=== PATIENT | male | born 1970 | race Hispanic/Latino ===

== ENCOUNTER 2022-06-18 08:06 | Observation (INO) | payer BC ==
[~2022-06-18] VITALS: Ht 180.3 cm; Wt 122.5 kg
[~2022-06-18 08:06] MED LIST: CELECOXIB 200 MG CAP ONE; CRESTOR10 MG PO; DEXAMETHASONE SOD PHOS 10 MG/1 ML VIAL ONE; FISH OIL 1,0001 EAC7 PO; GABAPENTIN 300 MG CAP ONE; MULTI-VITAMIN1 EACH PO; OLMESARTAN-HCT1 EACH PO; ROPIVACAINE 246.25 MG, EPINEPHRINE HCL 1:1000 1ML 0.5 MG, CLONIDINE HCL 0.08 MG, KETORO... INJ ONE
[2022-06-18] MEDS ORDERED: Vancomycin IV 1,000 MG ONE (08:57)
[2022-06-18] MEDS ORDERED: SODIUM CHLORIDE 0.9% 250ML 250 ML ONE (08:58)
[2022-06-18] MEDS ORDERED: TRANEXAMIC ACID 20 ML ONE (08:58)
[2022-06-18] MEDS ORDERED: LIDOCAINE HCL-PF 4% 40 MG/1 ML 5ML AMP ONE (09:09)
[2022-06-18] MEDS ORDERED: DEXMEDETOMIDINE HCL 2 ML ONE (09:10)
[2022-06-18] MEDS ORDERED: HYDROMORPHONE 2MG/ML 2 MG/ML ML ONE (09:11)
[2022-06-18] MEDS ORDERED: SODIUM CHLORIDE 0.9% 1000ML 1,000 ML IV SCH (11:00)
[2022-06-18] MEDS ORDERED: HYDROCODONE/APAP 5MG-325MG TAB PO PRN (11:00)
[2022-06-18] MEDS ORDERED: DIPHENHYDRAMINE HCL INJ 50 MG/ML VIAL IV PRN (11:00)
[2022-06-18] MEDS ORDERED: HYDROCODONE/APAP 7.5MG-325MG 1 EA TAB PO PRN (11:00)
[2022-06-18] MEDS ORDERED: DOCUSATE SODIUM 100 MG CAP PO PRN (11:00)
[2022-06-18] MEDS ORDERED: ONDANSETRON HCL INJ 2MG/ML 2ML 2 MG/ML VIAL IV PRN (11:00)
[2022-06-18] MEDS ORDERED: Morphine 4mg INJECTION 4 MG/ML INJ ONE (11:41)
[2022-06-18] MEDS ORDERED: HYDROCODON-ACE1 EA12 PO (12:25)
[2022-06-18 12:55] VITALS: BP 140/72
[2022-06-18 13:03] VITALS: BP 140/72
[2022-06-18] MEDS ORDERED: MIDAZOLAM HCL 2 MG/2 ML VIAL ONE (13:16)
[2022-06-18] MEDS ORDERED: ASPIRIN 325 MG TAB PO SCH (17:00)
[2022-06-18] MEDS ORDERED: CELECOXIB 200 MG CAP PO SCH (17:00)
[2022-06-18] MEDS ORDERED: DEXAMETHASONE SOD PHOS INJ 4 MG/ML SDV ONE (18:59)
[2022-06-18] MEDS ORDERED: ROCURONIUM BROMIDE 10 MG/ML 5ML VIAL IV ONE (18:59)
[2022-06-18] MEDS ORDERED: PROPOFOL IV EMULSION 10 MG/ML 20 ML VIAL ONE (18:59)
[2022-06-18] MEDS ORDERED: POVIDONE IODINE 0.05% 0.05 % ML PO ONE (18:59)
[2022-06-18] MEDS ORDERED: ONDANSETRON HCL INJ 2MG/ML 2ML 2 MG/ML VIAL ONE (18:59)
[2022-06-18] MEDS ORDERED: SEVOFLURANE INHAL SOLN 250 ML PEN BTL ONE (18:59)
[2022-06-18] MEDS ORDERED: KETOROLAC TROMETHAMINE 30 MG/ML VIAL ONE (18:59)
[2022-06-18] MEDS ORDERED: NEOSTIGMINE 1 MG/ML 10ML VIAL ONE (18:59)
[2022-06-18] MEDS ORDERED: GLYCOPYRROLATE INJ 0.2 MG/ML VIAL ONE (18:59)
[2022-06-18] MEDS ORDERED: METOCLOPRAMIDE HCL 10 MG/2ML VIAL ONE (18:59)
[2022-06-18] MEDS ORDERED: ROPIVACAINE 0.5% 5 MG/ML 30 ML SDV ONE (19:32)
[2022-06-18] MEDS ORDERED: EPINEPHRINE HCL 1:1000 1ML 1 MG/ML AMP ONE (19:32)
[2022-06-19] MEDS ORDERED: ACETAMINOPHEN 1000 MG/100 ML IV PRN (11:00)
== END 2022-06-18 16:54 | disposition home or self-care (01) ==
LOC: OR 08:06 → PACU V 10:58 → MED/SURG 12:38
PROVIDERS: ADMIT Specialist; ATTEND Specialist
DX: M17.11 Unilateral primary osteoarthritis, right knee (principal); Z20.822 Contact with and (suspected) exposure to COVID-19; Z01.818 Encounter for other preprocedural examination; E78.00 Pure hypercholesterolemia, unspecified; I10 Essential (primary) hypertension
CPT/HCPCS: 27447; 73560; 86850; 86900; 86920; 94799; 97110; 97116 ×2; 97161; 97530; C1713 ×2; C1776 ×4; G0378; J0171; J0690; J1100 ×2; J1170; J1885; J2250; J2270; J2405; J2704; J2710; J2765; J2795; J3370; J7050

== ENCOUNTER → 2025-02-06 | Day surgery (SDC) | payer BC, OTHER ==
[~2025-02-06] MED LIST changes: -CELECOXIB 200 MG CAP ONE; -DEXAMETHASONE SOD PHOS 10 MG/1 ML VIAL ONE; -GABAPENTIN 300 MG CAP ONE; +HYDROCODON-ACE1 EA12 PO; +MIDAZOLAM HCL 2 MG/2 ML VIAL ONE; +PROPOFOL IV EMULSION 10 MG/ML 20 ML VIAL ONE; -ROPIVACAINE 246.25 MG, EPINEPHRINE HCL 1:1000 1ML 0.5 MG, CLONIDINE HCL 0.08 MG, KETORO... INJ ONE
[2025-02-06] MEDS: LACTATED RINGER'S 1,000 ML ONE (07:18)
[2025-02-06 09:00] VITALS: BP 110/76; PULSE 74; RESP 16; TEMP 97.7; O2SAT 98
== END | disposition home or self-care (01) ==
LOC: OR 06:38
PROVIDERS: ATTEND Internal Medicine Gastroenterology
DX: Z12.11 Encounter for screening for malignant neoplasm of colon (principal); K63.5 Polyp of colon; D12.3 Benign neoplasm of transverse colon; D12.4 Benign neoplasm of descending colon; K57.90 Diverticulosis of intestine, part unspecified, without perforation or abscess without bleeding; K64.8 Other hemorrhoids; I10 Essential (primary) hypertension; E78.5 Hyperlipidemia, unspecified; F17.210 Nicotine dependence, cigarettes, uncomplicated
CPT/HCPCS: 45384; 45385; 93005; J2250; J2704; J7121; 45378